=== PATIENT | male | born 1995 | race Caucasian/White ===

== ENCOUNTER 2016-12-09 06:32 | Emergency (ER) | payer OTHER ==
[~2016-12-09] VITALS: Ht 175.3 cm; Wt 75.3 kg
[2016-12-09] MEDS ORDERED: AZATHIOPRINE50 MG PO (07:20)
[2016-12-09] MEDS ORDERED: LEVSIN0.125 MG ORAL (07:20)
[2016-12-09] MEDS ORDERED: COLACE100 MG ORAL (07:21)
[2016-12-09] MEDS ORDERED: DiphenhydrAMINE 50mg/ml Inj IVP ONE (07:30)
[2016-12-09] MEDS ORDERED: Metoclopramide 10mg/2ml Inj IVP ONE (07:30)
[2016-12-09] MEDS ORDERED: HYDROmorphone 1mg/ml Carpuject IVP ONE ×2 (07:30→09:15)
--- NOTE | 2016-12-09 07:31 | Emergency Room Report ---
History of Present Illness General Chief Complaint: Abdominal Pain Source: Patient Present Illness HPI The patient presents with right lower quadrant pain. This began yesterday. He rates it 10/17. He took 2 [place] earlier and it hasn't helped the pain. Has a history of Crohn's disease. This is how his Crohn's usually presents (see qualification below). He denies any fevers. He has nausea. He's also passing some mucus with some blood in his stool which is usually what happens with his Crohn's. He takes Imuran and Humira from [facility] in [place]. He states that he used to take prednisone but is no longer doing this. Usually when his Crohn's gets worse he presents to the emergency department it's IV hydration, labs and also analgesia (he states it is Dilaudid). The patient denies any dysuria, sore throat, cough, rashes. He states he is scheduled for surgery mid next month. 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 Allergies: Coded Allergies: No Known Allergies (Unverified , 12/09/16) Patient History Past Medical History: see triage record Social History Narrative from [place] Reviewed Nursing Documentation: PMH: Agreed, PSxH: Agreed Nursing Documentation-PMH Past Medical History: No History, Except For Hx Cardiac Problems: No - appendectomy ,crohns Physical Exam Vital Signs Date Time Temp Pulse Resp B/P (MAP) Pulse Ox O2 Delivery O2 Flow Rate FiO2 12/09/16 07:15 98.1 111 22 144/86 98 Room Air Sp02 EP Interpretation: reviewed, normal General Appearance: well appearing, no apparent distress, GCS 15 Head: normocephalic Eyes: bilateral eye normal inspection, bilateral eye PERRL ENT: moist mucus membranes Neck: supple Respiratory: lungs clear, normal breath sounds Cardiovascular #1: regular rate, rhythm Cardiovascular #2: 2+ radial (R) Gastrointestinal: normal bowel sounds, no rebound, guarding - RLQ, tenderness Musculoskeletal: back normal, gait/station normal, normal range of motion Neurologic: alert, oriented x3, grossly normal Psychiatric: mood/affect normal Skin: normal inspection, warm/dry Medical Decision Making Diagnostic Impression: Primary Impression: Abdominal pain Qualified Codes: R10.31 - Right lower quadrant pain Additional Impression: Crohns disease Qualified Codes: K50.919 - Crohn's disease, unspecified, with unspecified complications ER Course The patient presents with fairly severe right lower quadrant pain. Differential includes Crohn's, diverticulitis, UTI, GItis amongst others. He states this is his usual presentation. Laboratory will be obtained. Consideration for CT scan if white count elevated. He is post appendectomy. Labs significant for normal WBC, good H/H. Electrolytes normal. Lipase normal. Pain still present. Repeating dilaudid. Improved and no guard. He is asking if [facility] has access to [facility] records. Patient stable for outpatient observation and treatment. Laboratory Tests Test 12/09/16 07:35 12/09/16 08:35 White Blood Count 9.4 K/UL (4.8-10.8) Red Blood Count 5.61 M/UL (4.70-6.10) Hemoglobin 17.4 G/DL (14.2-18.0) Hematocrit 50.3 % (42.0-52.0) Mean Corpuscular Volume 90 FL (80-99) Mean Corpuscular Hemoglobin 31.0 PG (27.0-31.0) Mean Corpuscular Hemoglobin Concent 34.6 G/DL (32.0-36.0) Red Cell Distribution Width 10.8 % (11.6-14.8) L Platelet Count 287 K/UL (150-450) Mean Platelet Volume 7.1 FL (6.5-10.1) Neutrophils (%) (Auto) 60.7 % (45.0-75.0) Lymphocytes (%) (Auto) 32.1 % (20.0-45.0) Monocytes (%) (Auto) 5.3 % (1.0-10.0) Eosinophils (%) (Auto) 1.0 % (0.0-3.0) Basophils (%) (Auto) 0.9 % (0.0-2.0) Sodium Level 143 mEQ/L (135-145) Potassium Level 3.9 mEQ/L (3.4-4.9) Chloride Level 106 mEQ/L (98-107) Carbon Dioxide Level 26 mEQ/L (20-30) Anion Gap 11 (5-15) Blood Urea Nitrogen 22 mg/dL (7-23) Creatinine 1.1 mg/dL (0.7-1.2) Estimate Glomerular Filtration Rate > 60 mL/min (>60) Glucose Level 116 mg/dL (74-106) H Calcium Level 9.7 mg/dL (8.6-10.2) Total Bilirubin 0.2 mg/dL (0.0-1.2) Aspartate Amino Transferase (AST) 14 U/L (5-40) Alanine Aminotransferase (ALT) 15 U/L (3-41) Alkaline Phosphatase 71 U/L (40-129) Total Protein 7.7 g/dL (6.6-8.7) Albumin 4.7 g/dL (3.5-5.2) Globulin 3.0 g/dL Albumin/Globulin Ratio 1.5 (1.0-2.7) Lipase 40 U/L (< 60) Urine Color Pale yellow Urine Appearance Clear Urine pH 6 (4.5-8.0) Urine Specific [place] 1.025 (1.005-1.035) Urine Protein Negative (NEGATIVE) Urine Glucose (UA) Negative (NEGATIVE) Urine Ketones Negative (NEGATIVE) Urine Occult Blood Negative (NEGATIVE) Urine Nitrite Negative (NEGATIVE) Urine Bilirubin Negative (NEGATIVE) Urine Urobilinogen Normal MG/DL (0.0-1.0) Urine Leukocyte Esterase Negative (NEGATIVE) Last Vital Signs Date Time Temp Pulse Resp B/P (MAP) Pulse Ox O2 Delivery O2 Flow Rate FiO2 12/09/16 11:30 98.1 58 15 123/83 99 Room Air Status: improved Disposition: HOME, SELF-CARE Condition: Improved Mikal Roman M.D. Dec 09, 2016 07:31
[2016-12-09 07:35] VITALS: BP 114/79
[2016-12-09 07:52] LABS: BASOPHILS % (AUTO) 0.9 % (0.0-2.0); LYMPHOCYTES % (AUTO) 32.1 % (20.0-45.0); MEAN CORPUSCULAR HGB CONC 34.6 G/DL (32.0-36.0); MEAN CORPUSCULAR VOLUME 90 FL (80-99); MEAN PLATELET VOLUME 7.1 FL (6.5-10.1); MONOCYTES % (AUTO) 5.3 % (1.0-10.0); NEUTROPHILS % (AUTO) 60.7 % (45.0-75.0); PLATELET COUNT 287 K/UL (150-450); RED BLOOD COUNT 5.61 M/UL (4.70-6.10); RED CELL DISTRIBUTION WIDTH 10.8 % (11.6-14.8); WHITE BLOOD COUNT 9.4 K/UL (4.8-10.8)
[2016-12-09 08:04] LABS: ALANINE AMINOTRANSFERASE 15 U/L (3-41); ALBUMIN/GLOBULIN RATIO 1.5 (1.0-2.7); ANION GAP 11 (5-15); ASPARTATE AMINO TRANSFERASE 14 U/L (5-40); CALCIUM 9.7 mg/dL (8.6-10.2); CARBON DIOXIDE 26 mEQ/L (20-30); CHLORIDE 106 mEQ/L (98-107); CREATININE 1.1 mg/dL (0.7-1.2); GLOMERULAR FILTRATION RATE > 60 mL/min (>60); HEMOLYSIS 9; LIPASE 40 U/L (< 60); POTASSIUM 3.9 mEQ/L (3.4-4.9); SODIUM 143 mEQ/L (135-145); TOTAL PROTEIN 7.7 g/dL (6.6-8.7)
[2016-12-09 08:44] LABS: APPEARANCE,URINE CLEAR; KETONES,URINE NEGATIVE (NEGATIVE); LEUKOCYTE ESTERASE ,URINE NEGATIVE (NEGATIVE); NITRITE,URINE NEGATIVE (NEGATIVE); PH,URINE 6 (4.5-8.0); PROTEIN,URINE NEGATIVE (NEGATIVE); UROBILINOGEN,URINE NORMAL MG/DL (0.0-1.0)
[2016-12-09 09:17] VITALS: BP 115/78
[2016-12-09] MEDS ORDERED: Hydromorphone 0.5mg/0.5ml inj IVP ONE (10:45)
[2016-12-09 11:07] VITALS: BP 123/83
[2016-12-09 11:30] VITALS: BP 123/83
== END 2016-12-09 11:30 | disposition home or self-care (01) ==
LOC: EMR 07:30
DX: R10.32 Left lower quadrant pain (principal); K50.90 Crohn's disease, unspecified, without complications
CPT/HCPCS: 36415; 80053; 81003; 83690; 85025; 96361; 96374; 96375; 99284; J1170; J1200; J2765